=== PATIENT | female | born 2000 | race Caucasian/White ===

== ENCOUNTER 2023-07-22 19:19 | Emergency (ER) | payer OTHER, BC, SELFPAY ==
[2023-07-22 19:21] VITALS: BP 132/84; PULSE 106; RESP 17; TEMP 36.6; O2SAT 99; BMI 34.4
--- NOTE | 2023-07-22 19:41 | ED_ITS ---
Discharge Plan Disposition Patient Disposition: Home, Self-Care Prescriptions Prescriptions: New promethazine 25 mg tablet 25 mg PO TID PRN (Reason: nausea and vomiting) 5 Days Qty: 20 0RF ondansetron 4 mg tablet,disintegrating 4 mg PO Q6H PRN (Reason: nausea and vomiting) 5 Days Qty: 20 0RF Referrals Follow up/Referrals: Chris Garcia MD [Primary Care Provider] - See instructions Activity Restrictions/Add. Instructions Additional Instructions/Restrictions: This is most likely a viral syndrome today with nausea vomiting and diarrhea no other significant abnormalities were found from an emergency standpoint. As discussed I have prescribed Phenergan and Zofran you may use Phenergan as a first-line agent and Zofran as backup. Please follow-up with your [facility] doctor or your primary care doctor or return to the emergency department with any worsening or refractory symptoms. Clinical Impressions Clinical Impression: Nausea vomiting and diarrhea, Acute dehydration, First trimester Instructions Patient Instructions: DI for Nausea -- Adult Discharge ED Provider: Chava Tavares General Adult HPI General Chief complaint: Nausea/Vomiting/Diarrhea Stated complaint: vomiting,diarhhea,, 7 wks Time Seen by Provider: 07/22/23 19:29 Mode of Arrival: Ambulatory Source of Information: Patient Limitations: No Limitations Description of Symptoms (Recalled from ER Triage Doc. by RN): 22 F presents from home with c/o n/v/d that began at 0500 this date. Patient reports she is approximately 7 weeks at this time. LMP 06/12/2023 making her a . Patient states she is unable to hold down anything PO at this point and she is concerned for dehydration. NAD otherwise during triage. A/O x4, GCS 15 History of Present Illness HPI narrative: Patient is a 22-year-old G2, P1 at 6 weeks gestational age from dates presented with nausea vomiting diarrhea. States she has had so many episodes she can count today. Denies any significant abdominal pain vaginal bleeding vaginal discharge crampy discomfort etc. No fevers chills no positive sick contacts no respiratory symptoms no other medical problems. Related Data Previous Rx's Medication Instructions Recorded ondansetron 4 mg disintegrating 4 mg PO Q6H PRN nausea and 07/22/23 tablet vomiting 5 days #20 tabs promethazine 25 mg tablet 25 mg PO TID PRN nausea and 07/22/23 vomiting 5 days #20 tabs Allergies Allergy/AdvReac Type Severity Reaction Status Date / Time No Known Allergies Allergy Verified 07/22/23 19:45 [facility] Disclaimer: The information contained in this section may have been updated after the patient was seen, as this information can be updated by other users. Medical History (Updated 07/22/23 @ 19:52 by Trent Rivera, RN) No significant past medical history Surgical History (Updated 07/22/23 @ 19:52 by Trent Rivera, RN) No history of previous surgery Family History (Updated 07/22/23 @ 19:52 by Trent Rivera, RN) Other No significant family history Social History (Updated 07/22/23 @ 19:54 by Trent Rivera, RN) Smoking Status: Never smoker alcohol intake: former current occupational status: unemployed Travel in the last 8 weeks: None household members: spouse and children housing: house marital status: number of children: 1 education level: high school ROS Obtained: Yes All systems reviewed & no additional complaints except as documented Physical Exam General General appearance: alert and in no apparent distress Respiratory Respiratory exam: Present normal lung sounds bilaterally; Absent respiratory distress Cardiovascular Cardiovascular exam: Present regular rate; Absent tachycardia Abdominal Exam Abdominal exam: Present soft; Absent distention or tenderness Neurological Exam Neurological exam: Present alert and oriented X3 Medical Decision Making Fred Inquiry Pt receiving controlled substance: No Vital Signs: 07/22/23 19:21 07/22/23 19:57 07/22/23 20:25 Temperature 97.8 F 97.8 F 97.8 F Temperature Source Oral Oral Oral Pulse Rate 90 83 Pulse Rate [Right] 106 H Respiratory Rate 17 16 16 Blood Pressure 129/84 129/85 Blood Pressure [Left Arm] 132/84 Blood Pressure Mean [Left Arm] 100 Blood Pressure Source Automatic Cuff Automatic Cuff Blood Pressure Source [Left Arm] Automatic Cuff Blood Pressure Position Supine Supine Blood Pressure Position [Left Arm] Sitting 02 Sat by Pulse Oximetry 99 99 99 Oxygen Delivery Method Room Air Room Air Room Air Lab Data Lab results reviewed: Yes I reviewed the patient's lab results. Lab Results 07/22/23 19:39: WBC 11.2 H, RBC 4.89, Hgb 12.9, Hct 38.3, MCV 78.3 L, MCH 26.3 L , MCHC 33.7, RDW 14.5, Plt Count 412, MPV 8.6, Neut % (Auto) 82.6 H, Lymph % (Auto) 12.3, Parker % (Auto) 4.1, Eos % (Auto) 0.7, Baso % (Auto) 0.3, Neut # (Aut o) 9.3 H, Lymph # (Auto) 1.4, Parker # (Auto) 0.5, Eos # (Auto) 0.1, Baso # (Auto) 0.0, Sodium 138, Potassium 3.5, Chloride 105, Carbon Dioxide 20 L, Anion Gap 16.5 H, BUN 8, Creatinine 0.60, Estimated Creat Clear 248, Estimated GFR 123, Est GFR ( Amer) 149, Glucose 98, Calcium 9.3, Phosphorus 3.8, Magnesium 1.7, Total Bilirubin 0.6, AST 27, ALT 27, Alkaline Phosphatase 126, Total Protein 7.6, Albumin 4.6, Globulin 3.0, Albumin/Globulin Ratio 1.5, Lipase 166 07/22/23 19:39 07/22/23 19:39 Orders (Tests/Meds): ED MEDICATIONS Generic Name Dose Route Start Last Admin Trade Name Freq PRN Reason Stop Dose Admin Lactated Ringer's 1,000 mls @ 999 mls/hr 07/22/23 19:45 07/22/23 19:45 Lactated Ringer's 1000 Ml Bag IV 07/22/23 20:45 999 mls/hr .Q1H1M KARLO Administration Sodium Chloride 10 ml 07/22/23 19:55 Sodium Chloride 0.9% 10ml Flush Syringe IV 08/21/23 19:54 NEEDED PRN Maintain IV Site Discontinued Medications Generic Name Dose Route Start Last Admin Trade Name Freq PRN Reason Stop Dose Admin Ondansetron HCl 4 mg 07/22/23 19:40 07/22/23 19:45 Ondansetron 4mg/2ml Vial IV 07/22/23 19:41 4 mg ONCE ONE Administration ORDERS Category Date Time Status CBC w/Auto Diff [Complete Blood Count Auto Diff] Stat Lab 07/22/23 19:39 Completed CMP [Comprehensive Metabolic Panel] Stat Lab 07/22/23 19:39 Completed Lipase Stat Lab 07/22/23 19:39 Completed Magnesium Stat Lab 07/22/23 19:39 Completed Phosphorous Stat Lab 07/22/23 19:39 Completed Medical Decision Narrative: Patient is a 22-year-old female with gestational age with nausea vomiting diarrhea numerous episodes today concern for dehydration possible organ damage and electrolyte abnormalities we will get basic blood work give IV fluids and Zofran. I had an extensive discussion with her regarding the risks and benefits of Zofran with shared decision making we opted to move forward with this medication. Reassess after initial workup is complete not concerned about a ectopic etc. at this point. Reassessment 8:34 PM patient feeling much better serial exams are benign she is tolerating p.o. prescription for antiemetics were given with instructions regarding them. No significant electrolyte abnormalities or acute renal insufficiency etc. This is most likely a viral syndrome return precautions discussed and patient was discharged in improved and stable condition. Critical Care Critical Care Time Critical Care Time: No
[2023-07-22] MEDS: LACTATED RINGERS 1000ML 1,000 ML 999 ML IV (19:45)
[2023-07-22] MEDS: ONDANSETRON 4MG/2ML VIAL 4 MG IV (19:45)
[2023-07-22 19:47] LABS: Basophils % 0.3 % (0.1-2.0); Eosinophils # 0.1 K/mm3 (0.0-0.4); Eosinophils % 0.7 % (0.1-12.0); Hematocrit 38.3 % (37.0-47.0); Hemoglobin 12.9 g/dL (12.2-16.2); Lymphocytes # 1.4 K/mm3 (0.7-4.5); Lymphocytes % 12.3 % (10-50); Mean Corpuscular HGB Conc 33.7 g/dL (31.8-35.4); Mean Corpuscular Hemoglobin 26.3 pg (27.0-31.2); Mean Corpuscular Volume 78.3 fl (81-99); Mean Platelet Volume 8.6 fl (7.4-10.4); Monocytes # 0.5 K/mm3 (0.1-1.0); Monocytes % 4.1 % (1.7-9.3); Neutrophils # 9.3 K/mm3 (1.8-7.8); Neutrophils % 82.6 % (37.0-80.0); Platelet Count 412 K/mm3 (142-424); Red Blood Count 4.89 M/mm3 (4.20-5.40); Red Cell Distribution Width 14.5 % (11.5-17.5); White Blood Count 11.2 K/mm3 (4.8-10.8)
[2023-07-22 19:57] VITALS: BP 129/84; PULSE 90; RESP 16; TEMP 36.6; O2SAT 99
[2023-07-22 20:02] LABS: Chloride 105 mmol/L (98-107); Potassium 3.5 mmoL/L (3.5-5.1); Sodium 138 mmol/L (136-145)
[2023-07-22 20:04] LABS: Alanine Aminotransferase 27 U/L (12-78); Aspartate Amino Transferase 27 U/L (14-36); Blood Urea Nitrogen 8 mg/dl (7-17); Creatinine Clearance Estimated 248 mL/min (50-200); Estimated Glomerular Filt Rate 123 ml/min (>60); GFR (African American) 149 ML/MIN (>60)
[2023-07-22 20:05] LABS: Albumin Level 4.6 g/dl (3.5-5.0); Albumin/Globulin Ratio 1.5 (1.1-1.8); Alkaline Phosphatase 126 U/L (38-126); Anion Gap 16.5 mEq/L (5-15); Bilirubin,Total 0.6 mg/dl (0.2-1.3); Calcium 9.3 mg/dl (8.4-10.2); Carbon Dioxide 20 mmol/L (22.0-30.0); Glucose 98 mg/dl (74-100); Lipase 166 U/L (23-300); Magnesium 1.7 mg/dl (1.6-2.3); Phosphorous 3.8 mg/dl (2.5-4.5); Total Protein,Serum 7.6 g/dl (6.3-8.2)
[2023-07-22 20:25] VITALS: BP 129/85; PULSE 83; RESP 16; TEMP 36.6; O2SAT 99
[2023-07-22 20:42] VITALS: BP 130/84; PULSE 88; RESP 18; TEMP 36.6; O2SAT 100
== END 2023-07-22 20:41 | disposition home or self-care (01) ==
PROVIDERS: Emergency Provider Student in an Organized Health Care Education/Training Program; PCP Internal Medicine
DX: O99.281 Endocrine, nutritional and metabolic diseases complicating pregnancy, first trimester (principal); E86.0 Dehydration; Z3A.00 Weeks of gestation of pregnancy not specified
CPT/HCPCS: 80053; 83690; 83735; 84100; 85025; 96361; 96374; 99285; J2405